=== PATIENT | male | born 1970 | race Caucasian/White ===

== ENCOUNTER 2017-09-09 19:10 | Emergency (ER) | payer MEDICARE, MEDICAID ==
[~2017-09-09] VITALS: Ht 177.8 cm; Wt 72.6 kg
[~2017-09-09 19:10] MED LIST: ALBU8.5H8 INH; D-ME118S12 PO; DULO30CA2 PO; GABA600T PO; MORP30TA PO; OXYC30TA2 PO; PROP10TA10 PO
[2017-09-09] MEDS ORDERED: CLON2TAB PO (19:28)
[2017-09-09] MEDS ORDERED: ONDA4TAB8 PO (19:28)
[2017-09-09] MEDS ORDERED: MIRT15TA PO (19:28)
[2017-09-09] MEDS ORDERED: CYCL5TAB PO (19:28)
[2017-09-09] MEDS ORDERED: ASEN5TAB7 SL (19:28)
[2017-09-09] MEDS ORDERED: ALBU8.5H8 IH (19:28)
[2017-09-09] MEDS ORDERED: DICL100G16 TP (19:28)
[2017-09-09] MEDS ORDERED: FLUT1DIS28 IH (19:28)
[2017-09-09] MEDS ORDERED: ROPI0.5T PO (19:28)
[2017-09-09] MEDS ORDERED: VORTIOXETINE 10 MG (19:28)
--- NOTE | 2017-09-09 19:33 | NUR ---
DR MAN INTO EVAL PATIENT
[2017-09-09] MEDS ORDERED: HYDROCODONE/APAP 10-325 MG TABLET PO ONE (19:45)
[2017-09-09] MEDS ORDERED: HYDROCODONE/APAP 10-325 MG TABLET ONE (19:54)
--- NOTE | 2017-09-09 20:20 | NUR ---
PATIENT OUT OF UNIT FOR CT SCAN VIA WHEELCHAIR
--- NOTE | 2017-09-09 20:38 | NUR ---
PATIENT BACK FROM CT SCAN WITH NO DISTRESS NOTED
--- NOTE | 2017-09-09 21:15 | NUR ---
Patient discharged to home in stable conditon. Written and verbal after care instructions given. Patient verbalizes understanding of instructions. WALKEDOUT OF ER WITH NO DISTRESS NOTED
[2017-09-09 21:16] VITALS: BP 145/88
== END 2017-09-09 21:17 | disposition home or self-care (01) ==
LOC: ER 19:15
DX: S00.83XA Contusion of other part of head, initial encounter (principal); F17.200 Nicotine dependence, unspecified, uncomplicated; Z88.1 Allergy status to other antibiotic agents; W50.0XXA Accidental hit or strike by another person, initial encounter; Y93.89 Activity, other specified; Y92.89 Other specified places as the place of occurrence of the external cause; Y99.8 Other external cause status
CPT/HCPCS: 70486; 99284; A4663

== ENCOUNTER 2019-11-28 00:27 | Emergency (ER) | payer BC, MEDICAID, MEDICARE, OTHER ==
[~2019-11-28] VITALS: Ht 177.8 cm; Wt 77.1 kg
--- NOTE | 2019-11-28 02:27 | NUR ---
PHYSICIAN PRESIDENT AT BEDSIDE
--- NOTE | 2019-11-28 04:12 | NUR ---
Patient discharged to home in stable conditon. Written and verbal after care instructions given. Patient verbalizes understanding of instructions. ambulatory w/ assist of cane all belongings w/ pt
[2019-11-28 04:16] VITALS: BP 154/73
== END 2019-11-28 04:16 | disposition home or self-care (01) ==
LOC: ER 00:34
DX: M25.511 Pain in right shoulder (principal); M25.521 Pain in right elbow; M25.551 Pain in right hip; F17.200 Nicotine dependence, unspecified, uncomplicated; Z88.1 Allergy status to other antibiotic agents; Z79.899 Other long term (current) drug therapy; V49.9XXA Car occupant (driver) (passenger) injured in unspecified traffic accident, initial encounter; Y93.89 Activity, other specified; Y92.89 Other specified places as the place of occurrence of the external cause; Y99.8 Other external cause status
CPT/HCPCS: 72170; 73030; 73080; 73502; A4663

== ENCOUNTER 2021-02-08 21:09 | Emergency (ER) | payer BC, MEDICARE, MEDICAID ==
[~2021-02-08] VITALS: Ht 175.3 cm; Wt 72.6 kg
[~2021-02-08 21:09] MED LIST changes: +ALBU8.5H8 IH; -ALBU8.5H8 INH; +ASEN5TAB7 SL; +CLON2TAB PO; -D-ME118S12 PO; +DICL100G16 TP; -DULO30CA2 PO; -GABA600T PO; -PROP10TA10 PO
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
--- NOTE | 2021-02-08 21:25 | NUR ---
Dr. Elder in room to assess the patient.
--- NOTE | 2021-02-08 22:50 | NUR ---
Patient discharged to home in stable condition. Written and verbal after care instructions given. Patient verbalizes understanding of instructions. Stressed follow up or return to ER for worsening s/s. No signs of SOB or distress.
[2021-02-08 22:57] VITALS: BP 142/87
== END 2021-02-08 22:50 | disposition home or self-care (01) ==
LOC: ER 21:12
DX: S00.83XA Contusion of other part of head, initial encounter (principal); Y04.2XXA Assault by strike against or bumped into by another person, initial encounter; Y92.89 Other specified places as the place of occurrence of the external cause; F17.200 Nicotine dependence, unspecified, uncomplicated; M54.9 Dorsalgia, unspecified
CPT/HCPCS: 70486; 70488; 71045; 72072; A4663; J7050

== ENCOUNTER 2022-08-12 02:53 | Emergency (ER) | payer BC, OTHER ==
[~2022-08-12] VITALS: Ht 175.3 cm; Wt 81.6 kg
[2022-08-12 03:55] LABS: HEMATOCRIT 41.9 % (36.7-47.1); MEAN CORPUSCULAR HEMOGLOBIN 32.1 uug (23.8-33.4); MEAN CORPUSCULAR VOLUME 94.3 fL (73.0-96.2); PLATELET COUNT (AUTO) 352 K/uL (152-348)
[2022-08-12 04:08] LABS: CARBON DIOXIDE 27 mmol/L (21-32); CHLORIDE 104 mmol/L (98-107); CREATININE 1.8 mg/dL (0.6-1.3); GLUCOSE 252 mg/dL (74-106); POTASSIUM 4.6 mmol/L (3.5-5.1); UREA NITROGEN, BLOOD 28 mg/dL (7-18)
[2022-08-12 04:13] LABS: ALANINE AMINOTRANSFERASE 29 U/L (16-63); ALKALINE PHOSPHATASE 80 U/L (50-136); ASPARTATE AMINOTRANSFERASE 13 U/L (15-37); BILIRUBIN,DIRECT 0.1 mg/dL (0.0-0.2); BILIRUBIN,TOTAL 0.3 mg/dL (0.2-1.0); TOTAL PROTEIN, SERUM 7.8 g/dL (6.4-8.2)
[2022-08-12 04:16] LABS: ACETAMINOPHEN < 2.0 ug/mL (10-30)
[2022-08-12 04:30] LABS: ETHANOL < 3 MG/DL (0-0)
--- NOTE | 2022-08-12 04:45 | NUR ---
Patient able to ambulate to restroom with steady gait. No distress noted.
[2022-08-12 04:56] LABS: *BILIRUBIN,URIN NEGATIVE (NEGATIVE); *BLOOD, URINE NEGATIVE (NEGATIVE); *CLARITY,URINE CLEAR (CLEAR); *COLOR,URINE YELLOW (YELLOW); *KETONES,URINE NEGATIVE (NEGATIVE); *UROBILINOGEN,URINE 0.2 E.U./dl (NORMAL); LEUKOCYTE ESTERASE ,URINE NEGATIVE (NEGATIVE); NITRITE, URINE NEGATIVE (NEGATIVE); UGLUCOSE TRACE (NEGATIVE)
[2022-08-12 05:00] LABS: BACTERIA,URINE NONE SEEN /HPF (NONE SEEN); RBC,URINE 0-3 /HPF (0-3); SQUAMOUS EPITHELIAL CELL,UR MODERATE /HPF (NONE SEEN); WBC,URINE 0-3 /HPF (0-3)
[2022-08-12 05:08] LABS: *AMPHETAMINE, URINE POSITIVE (NEGATIVE); *CANNABINOID, URINE POSITIVE (NEGATIVE); *COCCAINE, URINE POSITIVE (NEGATIVE); *OPIATE, URINE NEGATIVE (NEGATIVE); *PHENCYCLIDINE SCREEN,URINE NEGATIVE (NEGATIVE)
--- NOTE | 2022-08-12 05:28 | NUR ---
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
--- NOTE | 2022-08-12 05:59 | NUR ---
Patient discharged to home in stable condition with patient's sister taking patient home. Written and verbal after care instructions given. Patient verbalizes understanding of instructions. Stressed follow up or return to ER for worsening s/s.
[2022-08-12 06:00] VITALS: BP 140/89
== END 2022-08-12 06:01 | disposition home or self-care (01) ==
LOC: ER 02:53
DX: T40.601A Poisoning by unspecified narcotics, accidental (unintentional), initial encounter (principal); R40.20 Unspecified coma; F14.10 Cocaine abuse, uncomplicated; F15.10 Other stimulant abuse, uncomplicated; Y92.89 Other specified places as the place of occurrence of the external cause; F17.200 Nicotine dependence, unspecified, uncomplicated; Z88.1 Allergy status to other antibiotic agents; E11.9 Type 2 diabetes mellitus without complications
CPT/HCPCS: 36415; 71045; 85025; 93005; A4663; G0480